=== PATIENT | male | born 1995 | race Caucasian/White ===

== ENCOUNTER 2018-06-16 09:37 | Emergency (ER) | payer MEDICAID ==
[~2018-06-16] VITALS: Ht 177.8 cm; Wt 94.9 kg
[2018-06-16 09:47] VITALS: Ht 177.8 cm; Wt 94.9 kg
[2018-06-16 11:07] VITALS: BP 139/84
== END 2018-06-16 11:47 | disposition home or self-care (01) ==
LOC: ED 09:37
DX: S62.91XD Unspecified fracture of right hand, subsequent encounter for fracture with routine healing (principal); Z98.890 Other specified postprocedural states; V49.9XXD Car occupant (driver) (passenger) injured in unspecified traffic accident, subsequent encounter

== ENCOUNTER 2019-06-25 20:36 | Emergency (ER) | payer OTHER ==
[~2019-06-25] VITALS: Ht 180.3 cm; Wt 92.1 kg
[2019-06-25 20:48] VITALS: Ht 180.3 cm; Wt 92.1 kg
[2019-06-25 21:58] VITALS: BP 122/60
== END 2019-06-25 21:58 | disposition home or self-care (01) ==
LOC: ED 20:36
DX: M54.5 Low back pain (principal); M54.6 Pain in thoracic spine; M79.10 Myalgia, unspecified site; V43.52XA Car driver injured in collision with other type car in traffic accident, initial encounter; Y93.I9 Activity, other involving external motion; Y92.488 Other paved roadways as the place of occurrence of the external cause; Y99.8 Other external cause status